=== PATIENT | male | born 1955 | race Caucasian/White ===

== ENCOUNTER 2017-03-13 09:56 | Emergency (ER) | payer OTHER ==
[~2017-03-13] VITALS: Ht 165.1 cm; Wt 77.1 kg
--- NOTE | 2017-03-13 10:13 | NUR ---
pt refused to proceed with ED care as advised by Dr. Canchola
--- NOTE | 2017-03-13 10:14 | NUR ---
PT. VERBALIZED UNDERSTANDING OF AFTERCARE INSTRUCTIONS.Patient discharged to home in stable condition. Written and verbal after care instructions given. Patient verbalizes understanding of instruction.
== END 2017-03-13 10:21 | disposition home or self-care (01) ==
LOC: ER 09:59
DX: N20.0 Calculus of kidney (principal)
CPT/HCPCS: Z7502; Z7610

== ENCOUNTER 2018-03-15 01:07 | Inpatient (IN) | payer OTHER ==
[~2018-03-15] VITALS: Ht 177.8 cm; Wt 72.6 kg
[2018-03-15] MEDS ORDERED: CIPROFLOXACIN IV RTU 400 MG in PREMIX 1 EA IV SCH (01:30)
[2018-03-15] MEDS ORDERED: MAGNESIUM HYDROXIDE 30 ML UDC PO PRN (01:30)
[2018-03-15] MEDS ORDERED: KETOROLAC TROMETHAMINE INJ 30 MG/ML VIAL IM PRN (01:30)
[2018-03-15] MEDS ORDERED: MAG HYDROX/AL HYDROX/SIMETH 30 ML UDC PO PRN (01:30)
[2018-03-15] MEDS ORDERED: ZOLPIDEM TARTRATE 5 MG TABLET PO PRN (01:30)
[2018-03-15] MEDS ORDERED: ACETAMINOPHEN 325 MG TABLET PO PRN (01:30)
[2018-03-15] MEDS ORDERED: Z GUARD REMEDY 2 OZ OINT TP PRN (01:30)
[2018-03-15] MEDS ORDERED: ONDANSETRON HCL/PF 4 MG/2 ML VIAL IVP PRN (01:30)
[2018-03-15 01:55] VITALS: BP 159/81
[2018-03-15 07:01] LABS: BASOPHILS % (AUTO) 0.6 % (0.0-2.0); EOSINOPHILS % (AUTO) 9.6 % (0.0-6.0); HEMATOCRIT 41 % (39-51); HEMOGLOBIN 13.5 g/dL (13.5-17.5); LYMPHOCYTES # (AUTO) 1.2 /CMM (0.8-4.8); LYMPHOCYTES % (AUTO) 21.5 % (20.0-44.0); MEAN CORPUSCULAR HGB CONC 33 g/dl (31.0-36.0); MEAN CORPUSCULAR VOLUME 79 fL (80-96); MONOCYTES # (AUTO) 0.5 /CMM (0.1-1.30); MONOCYTES % (AUTO) 9.4 % (2.0-12.0); NEUTROPHILS # (AUTO) 3.2 /CMM (1.8-8.9); NEUTROPHILS % (AUTO) 58.9 % (43.0-81.0); PLATELET COUNT (AUTO) 210 /CMM (150-450); RED BLOOD CELL COUNT(AUTO) 5.17 MIL/uL (4.5-6.0); WHITE BLOOD COUNT (AUTO) 5.4 K/uL (4.3-11.0)
[2018-03-15 07:03] LABS: ALBUMIN 3.2 g/dL (3.4-5.0); BILIRUBIN,TOTAL 0.4 mg/dL (0.2-1.0); CALCIUM, SERUM 8.9 mg/dL (8.5-10.1); CREATININE 1.4 mg/dL (0.6-1.3); PHOSPHORUS 3.5 mg/dL (2.5-4.9); POTASSIUM 4.3 mmol/L (3.5-5.1); TOTAL PROTEIN, SERUM 6.6 g/dL (6.4-8.2)
[2018-03-15] MEDS: IV NS 0.9% 1,000 ML IV PRN ×2 (07:11→21:19)
--- NOTE | 2018-03-15 07:38 | NUR ---
MS2/RN PATIENT IS SLEEPING, EASILY AROUSABLE, APPEAR COMFORTABLE, NO SIGNS OF DISTRESS NOTED, UNABLE TO START IVF THE COMPUTER WAS DOWN. PATIENT REQUESTED NOT TO BE BOTHERED WHEN SLEEPING HE WANTS TO GET MUCH SLEEP HE CAN GET. ADMISSION PAPER WORK IN CHART. ALL NEEDS ATTENDED AT THIS TIME, ENDORSED TO NEXT RN FOR CONTINUITY OF CARE.
[2018-03-15] MEDS ORDERED: ONDA4TAB5 PO (07:57)
[2018-03-15] MEDS ORDERED: HYDR-3972 PO (07:57)
[2018-03-15] MEDS ORDERED: LEVO500T90 PO (07:57)
[2018-03-15] MEDS ORDERED: FLUC100T8 PO (07:57)
[2018-03-15 08:00] VITALS: BP 139/78
--- NOTE | 2018-03-15 08:05 | NUR ---
RN NOTES PATIENT WOULD LIKE TO BE LEFT ALONE AND HAVE SOME SLEEP, PATIENT KEPT NPO AT THIS TIME, DENIES PAIN AT THIS TIME. NEEDS ATTENDED AND MET, CALL LIGHT WITHIN REACH, WILL CONTINUE TO MONITOR.
[2018-03-15] MEDS: PANTOPRAZOLE 40 MG VIAL IV SCH (08:45)
[2018-03-15] MEDS: CIPROFLOXACIN IV RTU 400 MG in PREMIX 1 EA IV SCH ×2 (08:45→21:14)
[2018-03-15] MEDS: MORPHINE SULFATE INJ 4 MG/ML DISP.SYRIN IV PRN ×2 (08:53→14:12)
[2018-03-15] MEDS ORDERED: DEXTROSE 50%-WATER 50 ML DISP.SYRIN IV PRN (11:30)
[2018-03-15] MEDS: BLOOD SUGAR DIAGNOSTIC 1 EACH STRIP IN SCH ×3 (11:43→21:25)
[2018-03-15] MEDS: HYDROCODONE/APAP 5/325MG 1 EACH TABLET PO PRN ×2 (11:45→19:57)
--- NOTE | 2018-03-15 11:54 | NUR ---
RN NOTES CALLED DR. REYES AND RELAYED CT RESULTS FROM [facility], RECEIVED ORDER TO CHANGE TORADOL PRN TO TORADOL 30MG IVP Q6HR SCHEDULED. ORDER NOTED AND CARRIED OUT.
[2018-03-15] MEDS ORDERED: KETOROLAC TROMETHAMINE INJ 30 MG/ML VIAL IV SCH (12:00)
--- NOTE | 2018-03-15 12:30 | NUR ---
RN NOTES PATIENT REFUSED TO HAVE SKIN ASSESSMENT, REFUSED PHOTOS.
--- NOTE | 2018-03-15 14:01 | NUR ---
RN NOTES SPOT WASHER SPOKE WITH THE PATIENT, AND THE PATIENT EXPRESSED FEELING DEPRESS. LEW ANTONIO RECOMMENDED FOR A PSYCH CONSULT. DR. GUEVARA MADE AWARE AND GAVE ORDER FOR PSYCH CONSULT. ORDER NOTED AND CARRIED OUT.
--- NOTE | 2018-03-15 14:05 | NUR ---
Social service consult requested by Dr. Wood for homelessness. Pt. is a 62 year old male who was admitted to [facility] for kidney stone. PACO met with pt. bedside. Pt. is alert and oriented x 4. Pt. has a flat affect and appears sad. Pt. was cooperative with SW during the assessment. Pt. states he has been homeless for over a year. Prior to being homeless, pt. was living in an apartment in [place]. PACO asked pt. what happened within the year that led him to be homeless. Pt. said, " it's a long story." Pt. did not disclose why he became homeless. Pt. lives in his car. Currently, pt's car is at [facility] because pt. was brought to [facility] via ambulance from [facility]. Pt. will need transportation to his car upon discharge. Pt. informed SW all he has is his car, computer and cellphone. If either one of them is lost or gone, he is done. Pt. appears depressed. PACO inquired with pt. if he has any depression and anxiety and states he has a lot of depression. Pt. is not taking any medication either for his depression. SW informed pt. she will request a psychiatric consult for him. Pt. agreed. Pt. has a son who is homeless as well but does not know his whereabouts. Pt. was receiving [employer] and Food stamps but his son lost his EBT card. PACO encouraged pt. to go to the [employer] office to get a new EBT card. SW to give pt. list of DPSS offices in [facility] prior to discharge. PACO offered pt. winter senior care placement, however, pt. declined stating he is afraid of going to the shelters and prefers to stay in his car. PACO did give pt. list of [facility] [id number] Winter Alf Placement, Homeless Alf Resources which include hot meals and showers as well and Behavioral health and medical clinics. Pt. denies drug and alcohol use and smokes approximately 1-10 cigarettes per day. Pt. currently denies suicidal and homicidal ideations and visual/auditory hallucinations at this time. No other social service needs are requested at this time. SW to give pt. list of DPSS offices and have pt. sign Homeless Patient Waiver Form prior to discharge. PACO informed pt's BYRON Quick that pt. is extremely depressed and to request a psychiatric consult order from pt's physican Dr. Wood.
--- NOTE | 2018-03-15 15:08 | NUR ---
RN NOTES PATIENT STILL C/O PAIN 09/15 AFTER GIVEN TORADOL AND MORPHINE, DR. GUEVARA MADE AWARE, AND RECEIVED NEW ORDERS TO DC TORADOL AND MORPHINE AND TO START PATIENT ON DILAUDID 1MG Q3HR PRN FOR SEVERE PAIN. ORDER NOTED AND CARRIED OUT.
[2018-03-15] MEDS: HYDROMORPHONE INJ 0.5 MG/0.5 ML SYRINGE IV PRN ×2 (15:13→21:45)
[2018-03-15 16:00] VITALS: BP 130/79
[2018-03-15 16:00] LABS: APPEARANCE,URINE CLOUDY (CLEAR); BILIRUBIN,URINE NEGATIVE (NEGATIVE); BLOOD, URINE 3+ Ery/uL (NEGATIVE); COLOR,URINE YELLOW (YELLOW); KETONES,URINE 2+ (NEGATIVE); LEUKOCYTE ESTERASE ,URINE 2+ (NEGATIVE); NITRITE, URINE POSITIVE (NEGATIVE); PROTEIN,URINE 2+ mg/dl (NEGATIVE); UGLUCOSE NEGATIVE (NEGATIVE)
[2018-03-15 16:07] LABS: BACTERIA,URINE 1+ /HPF (None Seen); RBC,URINE 51-80 /HPF (0-2); SQUAMOUS EPITHELIAL CELL,UR Rare /HPF (None Seen); WBC,URINE 81-100 /HPF (0-3)
[2018-03-15] MEDS: INSULIN REGULAR, HUMAN 100 UNIT/ML 3 ML VIAL SQ PRN ×2 (17:39→21:28)
--- NOTE | 2018-03-15 18:58 | NUR ---
RN NOTES PATIENT RESTING IN BED, NAD, DENIES N/V. STILL C/O MILD PAIN ON ABDOMINAL AREA WHEN HE'S NOT MOVING. IVF INFUSING AND TOLERATING WELL, CALL LIGHT WITHIN REACH, WILL ENDORSE TO CANDLE MAKER FOR ARLINE.
--- NOTE | 2018-03-15 19:10 | NUR ---
RN NOTES RECEIVED PATIENT AWAKE IN BED, ALERT AND ORIENTED X4, ON ROOM AIR AND TOLERATED WELL. PAIN AT TOLERABLE LEVEL AT THIS TIME,4/10. DENIES NAUSEA AND VOMITING. IV ACCESS ON RIGHT FOREARM PATENT AND INTACT WITH ONGOING IVF INFUSING WELL.PLAN OF CARE DISCUSSED WITH THE PATIENT AND VERBALIZED UNDERSTANDING. KEPT COMFORTABLE AND ATTENDED, WITH CALL LIGHT WITHIN REACH. WILL CONTINUE TO MONITOR.
--- NOTE | 2018-03-15 19:57 | NUR ---
RN NOTES PATIENT COMPLAINS OF LOWER ABDOMINAL PAIN, 08/15. NORCO 5/325 MG TAB GIVEN PO AND TOLERATED WELL. WILL CONTINUE TO MONITOR PT.
[2018-03-15 20:00] VITALS: BP 139/70
--- NOTE | 2018-03-15 21:45 | NUR ---
RN NOTES PATIENT COMPLAINS OF PAIN ON LOWER ABDOMEN, 11/15. DILAUDID 1 MG GIVEN IVP. WILL CONTINUE TO MONITOR PATIENT.
[2018-03-15 22:00] VITALS: BP 139/70
--- NOTE | 2018-03-15 22:05 | NUR ---
RN NOTES SEEN BY DR REYES, UROLOGIST.
[2018-03-16 06:28] LABS: BASOPHILS % (AUTO) 0.6 % (0.0-2.0); EOSINOPHILS % (AUTO) 10.7 % (0.0-6.0); HEMATOCRIT 41 % (39-51); HEMOGLOBIN 13.3 g/dL (13.5-17.5); LYMPHOCYTES # (AUTO) 1.1 /CMM (0.8-4.8); LYMPHOCYTES % (AUTO) 21.7 % (20.0-44.0); MEAN CORPUSCULAR HGB CONC 33 g/dl (31.0-36.0); MEAN CORPUSCULAR VOLUME 80 fL (80-96); MONOCYTES # (AUTO) 0.5 /CMM (0.1-1.30); PLATELET COUNT (AUTO) 183 /CMM (150-450); RED BLOOD CELL COUNT(AUTO) 5.14 MIL/uL (4.5-6.0); WHITE BLOOD COUNT (AUTO) 5.1 K/uL (4.3-11.0)
[2018-03-16 06:36] LABS: CALCIUM, SERUM 8.7 mg/dL (8.5-10.1); CREATININE 1.2 mg/dL (0.6-1.3); POTASSIUM 4.1 mmol/L (3.5-5.1)
[2018-03-16] MEDS: BLOOD SUGAR DIAGNOSTIC 1 EACH STRIP IN SCH (06:53)
--- NOTE | 2018-03-16 07:30 | NUR ---
RN NOTES PATIENT SLEPT WELL OVERNIGHT, ON ROOM AIR AND TOLERATED WELL. VITAL SIGNS STABLE, AFEBRILE. KEPT PAIN AT TOLERABLE LEVEL, DENIES NAUSEA AND VOMITING. STILL COMPLAINING OF DYSURIA WITH BROWNISH RED URINE OUT PUT, DR VYAS AWARE. ALL NEEDS ATTENDED. ENDORSED TO MORNING RN FOR CONTINUITY OF CARE.
[2018-03-16 08:00] VITALS: BP_SYST 110; BP_SYST 147; BP_DIAS 47; BP_DIAS 74
--- NOTE | 2018-03-16 08:00 | NUR ---
MS RN NOTES PATIENT IN BED RESTING NO SOB OR ACUTE DISTRESS NOTED. PERIPHERAL INV INTACT PATENT. BED IN LOW LOCKED POSITION,CALL LIGHT WITHIN REACH. WILL CONTINUE TO MONITOR.
[2018-03-16] MEDS: CIPROFLOXACIN IV RTU 400 MG in PREMIX 1 EA IV SCH (08:34)
[2018-03-16] MEDS: PANTOPRAZOLE 40 MG VIAL IV SCH (08:34)
[2018-03-16] MEDS: HYDROMORPHONE INJ 0.5 MG/0.5 ML SYRINGE IV PRN (08:43)
--- NOTE | 2018-03-16 09:06 | NUR ---
WOUND CARE CONSULT: PT PRESENTS WITH INTACT SKIN. PT ABLE TO REPOSITION IN BED. WILL SEE PRN. CURRENT LOKESH SCORE IS 21.
--- NOTE | 2018-03-16 10:30 | NUR ---
MS RN NOTES PATIENT SPOKE TO DR. GUEVARA WHO TOLD PATIENT HE WILL BE DISCHARGED TODAY WITH HELP OF CASE MANAGEMENT FOR DISCHARGE PLANING. PATIENT VERBALIZED UNDERSTANDING.
--- NOTE | 2018-03-16 11:00 | NUR ---
MS RN NOTES PATIENT NOTED AGITATED SCREAMING PROFANITIES AT STAFF MEMBERS, AFTER MULTIPLE ATTEMPT TO JAMES PATIENT, PATIENT CONTINUES CURSING PUSHING STAFF MEMBERS AWAY, PATIENT WALKING TOWARD ELEVATOR STATES HE IS LEAVING NO MATTER WHAT. STATED HE HAS THE RIGHT TO LEAVE AMA BUT HE HAS HIS PERIPHERAL IV WE NEED THAT REMOVED. PATIENT STATED " YOU FUCKING BITCH YOU WILL NOT TOUCH ME" SECURITY CALLED, WITH SECURITIES HELP REMOVED IV IN THE ELEVATOR. PATIENT STATES HE HAS HIS CAR PARKED AT [employer] AND HE WILL BE PICKING UP HIS CAR. PATIENT LEFT TO LOBBY WITH SECURITY.
--- NOTE | 2018-03-16 11:47 | NUR ---
PACO and senior case manager went to see pt. bedside to offer more resources, however were notified by BYRON Contreras that pt. became verbally abusive and agitated and left AMA to the lobby. Pt. was physically aggressive with the staff on [employer]. meat processing center manager and Cedric met with pt. in the lobby. Pt. was still agitated and refused to follow through with [facility] discharge process. Pt. stated he wants to picking crew supervisor his car at [facility] parking [facility] and refused any outpatient referrals. Pt. signed AMA form and Homeless patient waiver form. Pt. was provided with transportation to picking crew supervisor his car at the [facility] where pt. had left it prior to coming to [facility].
== END 2018-03-16 11:00 | disposition left against medical advice (07) | DRG 465 ==
LOC: MEDSG2 01:07
DX: N20.0 Calculus of kidney (principal); N17.9 Acute kidney failure, unspecified; E11.9 Type 2 diabetes mellitus without complications; I25.10 Atherosclerotic heart disease of native coronary artery without angina pectoris; I25.2 Old myocardial infarction; Z87.442 Personal history of urinary calculi; R03.0 Elevated blood-pressure reading, without diagnosis of hypertension
CPT/HCPCS: 36415; 80048-TC; 80053-TC; 80061-TC; 81000-TC; 82962-TC; 83735-TC; 84100-TC; 85025-TC; 87081-TC; 87086-TC; A4216; C9113; G0378; J0744; J1815; J1885; J2270; J7030